=== PATIENT | female | born 1960 | race Two or more races ===

== ENCOUNTER 2020-02-23 19:02 | Inpatient (IN) | payer BC, MEDICAID, OTHER ==
[~2020-02-23] VITALS: Ht 157.5 cm; Wt 90.6 kg
[~2020-02-23 19:02] MED LIST: LEVO200T7; METF-370; METO25TA93
[2020-02-23] MEDS ORDERED: cloNIDine HCL 0.1 MG TAB PO ONE (19:30)
[2020-02-23 19:51] LABS: Basophils # (auto) 0.1 10 ^3/uL (0-0.2); Basophils % (auto) 0.8 % (0.0-2.0); Eosinophils # (auto) 0.2 10 ^3/uL (0-0.8); Eosinophils % (auto) 1.9 % (0.0-7.0); Hematocrit 41.2 % (36.0-46.0); Lymphocytes # (auto) 2.9 10 ^3/uL (0.4-5.4); Lymphocytes % (auto) 32.6 % (10.0-50.0); Mean Corpuscular Hemoglobin 29.2 pg (28.0-32.0); Mean Corpuscular Hgb Conc. 33.9 g/dL (32.0-36.0); Mean Corpuscular Volume 85.9 fL (80.0-100.0); Monocytes # (auto) 0.6 10 ^3/uL (0-1.3); Monocytes % (auto) 6.2 % (0.0-12.0); Neutrophils # (auto) 5.2 10 ^3/uL (1.6-8.6); Neutrophils % (auto) 58.5 % (37.0-80.0); Nucleated Red Blood Cells % 0.1 %; Platelet Count (auto) 339 10^3/uL (140-450); Red Cell Distribution Width 14.2 % (11.8-14.3); White Blood Cell 8.9 10^3/uL (4.4-10.8)
[2020-02-23 20:13] LABS: Alanine Aminotransferase 15 U/L (13-56); Albumin 3.6 g/dL (3.4-5.0); Anion Gap 4 (5-15); Aspartate Aminotransferase 18 U/L (15-37); BUN/Creatinine Ratio 18.8; Blood Urea Nitrogen 13 mg/dL (7-18); Calcium 8.8 mg/dL (8.5-10.1); Carbon Dioxide 29 mmol/L (21-32); Chloride 101 mmol/L (98-107); GFR African American 112 mL/min; GFR Non-African American 92 mL/min; Glucose 215 mg/dL (74-106); INR 0.97 (0.9-1.15); Potassium 4.1 mmol/L (3.5-5.1); Sodium 134 mmol/L (136-145)
[2020-02-23 20:18] LABS: Alkaline Phosphatase 162 U/L (45-117); Bilirubin, Total 0.3 mg/dL (0.2-1.0); Total Protein 8.3 g/dL (6.4-8.2)
[2020-02-24] VITALS (7 sets, daily range): BP systolic 93–163; BP diastolic 65–90
[2020-02-24] MEDS ORDERED: cloNIDine HCL 0.1 MG TAB PO PRN (02:15)
[2020-02-24] MEDS: SODIUM CHLORIDE 0.9% 1,000 ML IV SCH ×2 (02:15→04:50)
[2020-02-24] MEDS ORDERED: HYDROcodone-ACET 5/325MG TAB PO PRN (02:15)
[2020-02-24] MEDS ORDERED: DOCUSATE SOD 100 MG CAP PO PRN (02:15)
[2020-02-24] MEDS ORDERED: ONDANSETRON HCL 4 MG/2 ML VIAL IV PRN (02:15)
[2020-02-24] MEDS ORDERED: ACETAMINOPHEN 325 MG TAB PO PRN (02:15)
--- NOTE | 2020-02-24 04:48 | NUR ---
Telemetry admit from ER Patient admitted to Telemetry unit. Patient oriented to primary RN, unit, room, bed, and unit policies regarding patient care and visiting hours. Patient now on continuous telemetry monitoring, tele box # [id number] and telemetry reading on arrival to unit is sinus rhythm. No s/s of distress or SOB, no complaints. Patient placed on bedside oxygen 2L NC, weighed by bedscale and encouraged to call if they need something. All questions and concerns addressed, patient verbalized understanding. Safety precautions maintained bed is in lowest position and locked, bed rails 2x. Call light within reach.
--- NOTE | 2020-02-24 06:35 | NUR ---
WEAPON- FURNACE HAND PATIENT TURNED IN FURNACE HAND. PLACED IN VALUABLES BAG AND TURNED INTO [employer] MONITOR CHASSIS PER PROTOCOL.
--- NOTE | 2020-02-24 07:20 | NUR ---
End of Shift Note Will endorse care to dayshift RN. At this time patient has no s/s of distress or SOB.
[2020-02-24 08:35] LABS: Basophils # (auto) 0 10 ^3/uL (0-0.2); Basophils % (auto) 0.6 % (0.0-2.0); Eosinophils # (auto) 0.1 10 ^3/uL (0-0.8); Eosinophils % (auto) 1.9 % (0.0-7.0); Hematocrit 40.2 % (36.0-46.0); Hemoglobin 13.6 g/dL (12.2-16.2); Lymphocytes # (auto) 2.6 10 ^3/uL (0.4-5.4); Lymphocytes % (auto) 35.1 % (10.0-50.0); Mean Corpuscular Hemoglobin 29.1 pg (28.0-32.0); Mean Corpuscular Hgb Conc. 33.8 g/dL (32.0-36.0); Mean Corpuscular Volume 86.1 fL (80.0-100.0); Monocytes # (auto) 0.5 10 ^3/uL (0-1.3); Monocytes % (auto) 6.5 % (0.0-12.0); Neutrophils # (auto) 4.1 10 ^3/uL (1.6-8.6); Neutrophils % (auto) 55.9 % (37.0-80.0); Platelet Count (auto) 309 10^3/uL (140-450); Red Blood Cells 4.67 10^6/uL (4.0-5.20); Red Cell Distribution Width 14.5 % (11.8-14.3); White Blood Cell 7.3 10^3/uL (4.4-10.8)
[2020-02-24 08:53] LABS: BUN/Creatinine Ratio 19.1; Calcium 8.7 mg/dL (8.5-10.1); Potassium 3.8 mmol/L (3.5-5.1)
[2020-02-24] MEDS ORDERED: DEXTROSE (50%) 50ML SYRG IV PRN (14:15)
[2020-02-24] MEDS ORDERED: LISINOPRIL 20 MG TAB PO ONE (14:15)
[2020-02-24] MEDS ORDERED: ASPirin-EC 81 mg tab PO ONE (14:15)
[2020-02-24] MEDS ORDERED: LORazepam 2MG/ML-1ML VIAL IV ONE (14:30)
--- NOTE | 2020-02-24 14:39 | NUR ---
ss consult Per consult patient needs PCP. Stephanie Pham to see patient for PCP today. Addendum: 02/24/20 at 1440 by Stephanie FINN Amended: Links added.
--- NOTE | 2020-02-24 15:00 | NUR ---
PT REFUSING MRI. PT OFFERED ATIVAN ORDERED BUT STILL REFUSING.
[2020-02-24] MEDS: ACCU-CHEK COMFORT CURVE STRIP VI SCH ×2 (17:00→21:20)
[2020-02-24] MEDS: InsuLIN REG 1unit/0.01ml Soln (100units/ml) SC SCH ×2 (17:00→21:24)
[2020-02-24] MEDS ORDERED: ATORVASTATIN 20 MG TAB PO SCH (22:00)
[2020-02-24] MEDS ORDERED: METOPROLOL TARTRATE 25 MG TAB PO SCH (22:00)
[2020-02-25 05:00] VITALS: BP 134/64
[2020-02-25] MEDS: InsuLIN REG 1unit/0.01ml Soln (100units/ml) SC SCH ×2 (06:43→12:51)
[2020-02-25] MEDS: ACCU-CHEK COMFORT CURVE STRIP VI SCH ×2 (06:45→11:53)
[2020-02-25] MEDS ORDERED: LEVOTHYROXINE SODIUM 50 MCG TAB PO SCH (07:00)
--- NOTE | 2020-02-25 07:44 | NUR ---
Closing note Endorsed care to day shift RN. no sob or distress noted.
--- NOTE | 2020-02-25 08:00 | NUR ---
Opening Shift Note Assume patient care from NOC RN. Patient currently resting in bed with eyes closed laying on left side. Safety precautions in place, will continue to monitor q1hr and PRN.
[2020-02-25 08:07] LABS: Cholesterol 236 mg/dL (< 200); HDL Cholesterol 39 mg/dL (40-59); LDL Cholesterol 146 mg/dL (< 100); Triglycerides 328 mg/dL (< 150)
[2020-02-25 09:00] VITALS: BP 118/69
--- NOTE | 2020-02-25 09:50 | NUR ---
at Bedside Dr. Albert at bedside discussing plan of care with patient. Patient currently denies dizziness, numbness and weakness. Patient is currently agreeable to MRI. Per Dr. Albert, adjust Ativan dose to 1mg IV PRN x1 for MRI. Dr. Albert aware of medication held, see EMAR.
--- NOTE | 2020-02-25 09:59 | NUR ---
Called MRI Spoke with Javy, BREANNA regarding patient's MRI. Per Javy, will notify when they are ready for patient for RN to premedicate for anxiety.
[2020-02-25] MEDS ORDERED: LORazepam 2MG/ML-1ML VIAL IV PRN (10:00)
[2020-02-25] MEDS ORDERED: LISINOPRIL 20 MG TAB PO SCH (10:00)
[2020-02-25] MEDS ORDERED: ASPirin-EC 81 mg tab PO SCH (10:00)
[2020-02-25] MEDS ORDERED: METOPROLOL TARTRATE 25 MG TAB PO SCH (10:00)
[2020-02-25] MEDS ORDERED: LEVO200T46 PO (10:39)
[2020-02-25] MEDS ORDERED: ASPI-543 PO (10:39)
[2020-02-25] MEDS ORDERED: LISI-646 PO (10:39)
[2020-02-25] MEDS ORDERED: METF-372 PO (10:39)
[2020-02-25] MEDS ORDERED: ATO40T PO (10:39)
[2020-02-25] MEDS ORDERED: INSLANTI SC (10:39)
[2020-02-25] MEDS ORDERED: AML5T PO (10:39)
[2020-02-25] MEDS ORDERED: INSULIN LANTUS (GLARGINE) 1 /0.01ml (100units/ml) SC ONE (10:45)
[2020-02-25] MEDS ORDERED: metFORMIN HYDROCHLORIDE 500 MG TAB PO ONE (10:45)
--- NOTE | 2020-02-25 10:45 | NUR ---
Called Received call from Dr. Albert. Per Dr. Albert, patient to be discharged if MRI is negative, follow up with Stephanie W regarding set up for PCP.
--- NOTE | 2020-02-25 10:49 | NUR ---
Called Stephanie W Left message with Stephanie W regarding set up for PCP.
--- NOTE | 2020-02-25 13:17 | NUR ---
BEST Faxed face sheet to [facility]. Received.
--- NOTE | 2020-02-25 14:49 | NUR ---
Sindhu GONZÁLES Paged Dr. Albert regarding MRI results posted.
--- NOTE | 2020-02-25 15:19 | NUR ---
Pt is an alert and oriented female that is pleasant but reserved in her communication. Pt states she resides with her sister, Pooja, but functions independently. Pt states she manages her own ADL's and uses no DME. Pt states she will be returning home upon discharge and has no social service needs /concerns. Will continue to monitor for any arising issues and provide intervention as appropriate. Addendum: 02/25/20 at 1521 by JENNY FINN Amended: Links added.
--- NOTE | 2020-02-25 15:40 | NUR ---
Stephanie Cronin Spoke with Stephanie Cronin. Per Stephanie, patient given information on PCPs and instructed to fill out paperwork and turn in to [facility]. Patient is able to verbalized understanding and says she will review her paperwork at home.
--- NOTE | 2020-02-25 15:48 | NUR ---
[facility] Transferred call from [facility] to room for patient info of new prescriptions.
[2020-02-25 15:49] VITALS: BP 118/69
--- NOTE | 2020-02-25 16:35 | NUR ---
Discharge Discharge instructions given as ordered. Encourage to follow up with PMD as instructed. All questions and concerns addressed. Patient verbalized understanding. Medication reconciliation form completed and copy given to patient. IV removed with catheter intact, pressure dressing applied. Telemetry unit returned to ICU. Patient ambulated to vehicle with all personal belongings, accompanied by staff and family member. No distress noted at time of departure. Patient provided with information to discharge clinic as well as medication information. Belongings held by security returned. CMP/TSH prescription given to patient. All questions answered. No signs of distress at this time.
== END 2020-02-25 16:35 | disposition home or self-care (01) | DRG 47 ==
LOC: ER 19:04 → TELE 19:05 → TELE-WESTW 02-24 04:19
PROVIDERS: ADMIT Hospitalist; ATTEND Internal Medicine
DX: G45.9 Transient cerebral ischemic attack, unspecified (principal); E03.9 Hypothyroidism, unspecified; I10 Essential (primary) hypertension; E78.5 Hyperlipidemia, unspecified; E11.65 Type 2 diabetes mellitus with hyperglycemia; Z90.710 Acquired absence of both cervix and uterus; Z79.899 Other long term (current) drug therapy
CPT/HCPCS: 36415; 70450; 70551; 71045; 80048; 80053; 80061; 82962; 83036; 83880; 84443; 84484; 85025; 85610; 85730; 93005; 93306; 93886; G0378; J1815